=== PATIENT | female | born 1955 | race African-American/Black ===

== ENCOUNTER 2017-06-13 09:55 | Emergency (ER) | payer MEDICARE, MEDICAID ==
[~2017-06-13] VITALS: Ht 167.6 cm; Wt 75.0 kg
[~2017-06-13 09:55] MED LIST: ALAV10TA10 PO; ATEN1TAB75 PO; CYCL-36 PO; MEDR4PAK3 PO; OMEP20CA5 PO; SIMV20 PO; TAB-TAB PO; TRAM50 PO; ZITH250T PO
[2017-06-13 09:58] VITALS: BP 204/99; PULSE 86; RESP 16; TEMP 98.4; O2SAT 98
[2017-06-13 10:56] VITALS: BP 238/107; PULSE 76; RESP 18; O2SAT 100
--- NOTE | 2017-06-13 11:01 | PD ---
HPI . intermittent neck swelling x 3 days Chief Complaint: ENT Complaint Time Seen by Provider: 10:57 Travel History International Travel<30 days: No Contact w/Intl Traveler<30days: No Traveled to known affect area: No History of Present Illness HPI 61 year-old female here with complaints of intermittent neck swelling. Patient tells me that she had a CT scan of her abdomen and pelvis with and without contrast on Thursday at [place] and has since had intermittent neck swelling. She denies any chest pain, nausea, vomiting, shortness breath, difficulty swallowing or talking. At this present moment, she does not have any neck swelling. She tells me that swelling is only present early in the morning. She has no associated pain or other symptoms. She denies any fever, chills, or cold-like symptoms. PFSH Past Medical History Arthritis: Yes Autoimmune Disease: No Blood Disorders: No Anxiety: No Depression: Yes Heart Rhythm Problems: No Cancer: No Cardiovascular Problems: Yes (CHEST PAIN) High Cholesterol: Yes Chemotherapy: No Chest Pain: Yes Congestive Heart Failure: No Diabetes: No Diminished Hearing: No Endocrine: No Gastrointestinal Disorders: Yes (ULCERS) GERD: Yes Glaucoma: No Genitourinary: No Headaches: Yes Hepatitis: No Hiatal Hernia: No Hypertension: Yes Immune Disorder: No Medical other: Yes (ACID REFLUX) Neurologic: Yes Psychiatric: No Reproductive: No Respiratory: No Myocardial Infarction: No Radiation Therapy: No Sickle Cell Disease: No Thyroid Disease: No Ulcer: Yes Menopausal: Yes : 4 Para: 4 Past Surgical History AICD: No Gynecologic Surgery: Yes (TUBAL LIGATION) Insulin Pump: No Joint Replacement: No Pacemaker: No Other Surgery: Yes Social History Alcohol Use: No Tobacco Use: No Substance Use: No Allergies-Medications (Allergen,Severity, Reaction): Coded Allergies: acetaminophen (Unverified Allergy, Severe, VOMITING, 05/12/17) hydrocodone (Unverified Allergy, Severe, VOMITING, 05/12/17) nitroglycerin (Unverified Allergy, Severe, SEVERE H/A, 05/12/17) propoxyphene (Unverified Allergy, Severe, VOMITING, 05/12/17) morphine (Unverified Adverse Reaction, Severe, upset stomach, 05/12/17) Reported Meds & Prescriptions Reported Meds & Active Scripts Active Medrol Dosepak (Methylprednisolone) 4 Mg Robin 4 Mg PO DIRECTED TAKE DIRECTED Zithromax Z-Robin (Azithromycin) 250 Mg Tab 250 Mg PO DIRECTED 5 Days 500 MG (2 TABLETS) PO ON DAY 1, THEN 250 MG (1 TABLET) PO ON DAYS 2 TO 5. Reported Multivitamin (Multivitamins) 1 Tab Tab 1 Tab PO DAILY Ultram (Tramadol HCl) 50 Mg Tab 1 Tab PO BIDPRN FOR PAIN Prilosec (Omeprazole) 20 Mg Capcr 20 Mg PO DAILY Zocor (Simvastatin) 20 Mg Tab 20 Mg PO DAILY Flexeril (Cyclobenzaprine HCl) 10 Mg Tab 10 Mg PO BIDPRN Tenormin (Atenolol) 100 Mg Tab 100 Mg PO DAILY Alavert (Loratadine) 10 Mg Tab 10 Mg PO DAILY Review of Systems General / Constitutional: No: Fever Eyes: No: Visual changes HENT: No: Headaches Cardiovascular: No: Chest Pain or Discomfort Respiratory: No: Shortness of Breath Gastrointestinal: No: Abdominal Pain Genitourinary: No: Dysuria Musculoskeletal: No: Pain Skin: No Rash Neurologic: No: Weakness Psychiatric: No: Depression Endocrine: No: Polydipsia Hematologic/Lymphatic: No: Easy Bruising Physical Exam Narrative GENERAL: AAO x 3, no acute distress, Well-nourished, well-developed patient. SKIN: Warm and dry. No visible rashes or bruising. HEAD: Normocephalic and atraumatic. EYES: No scleral icterus. No injection or drainage. ENT: No nasal drainage noted. Mucous membranes pink. Airway patent. No oropharynx abnormality NECK: Supple, trachea midline. No JVD. No visible swelling. No lymphadenopathy CARDIOVASCULAR: Regular rate and rhythm without murmurs, gallops, or rubs. RESPIRATORY: Breath sounds equal bilaterally. No accessory muscle use. No rhonchi or rales. GASTROINTESTINAL: visual inspection normal EXTREMITIES: No cyanosis or edema. BACK: No obvious deformity. NEURO: CN II-12 intact, PSYCH: AAO x 3, normal affect. Data Data Last Documented VS Vital Signs Date Time Temp Pulse Resp B/P (MAP) Pulse Ox O2 Delivery O2 Flow Rate FiO2 06/13/17 11:31 62 18 184/86 (118) 99 Room Air 06/13/17 09:58 98.4 MDM Medical Decision Making Medical Screen Exam Complete: Yes Emergency Medical Condition: Yes Medical Record Reviewed: Yes Differential Diagnosis adenopathy, viral syndrome, less likely anaphylactic reaction Narrative Course 61 year-old female here with complaints of intermittent neck swelling in the morning since a CT scan this past Thursday. On examination there are no abnormalities. Her blood pressure is elevated, however she is asymptomatic. She does report white coat syndrome. I've advised follow-up with the primary care provider Dr. Ferrer. I have requested another bp check prior to discharge. Diagnosis Primary Impression: History of neck swelling Patient Instructions: General Instructions Additional Instructions: Please return to emergency department if your symptoms return or worsen. Follow up with your primary care provider. Med/Other Pt SpecificInfo: No Change to Meds Disposition: 01 DISCHARGE HOME Condition: Stable Elke Collins Jun 13, 2017 11:01
[2017-06-13 11:31] VITALS: BP 184/86; PULSE 62; RESP 18; O2SAT 99
[2017-07-08] MEDS ORDERED: LISI40TA PO (14:25)
[2017-07-08] MEDS ORDERED: RANI150T PO (14:31)
[2017-07-08] MEDS ORDERED: HYDR-3801 PO (14:31)
[2017-07-08] MEDS ORDERED: MULT-65 PO (14:46)
[2017-07-08] MEDS ORDERED: SIMV20TA PO (14:46)
[2017-07-08] MEDS ORDERED: TRAM50TA PO (14:46)
[2017-07-08] MEDS ORDERED: ALAV10TA4 PO (14:46)
[2017-07-08] MEDS ORDERED: CYCL1TAB29 PO (14:46)
[2017-07-08] MEDS ORDERED: ATEN100T PO (14:46)
== END 2017-06-13 11:42 | disposition home or self-care (01) ==
LOC: NEPD 09:55
DX: R22.1 Localized swelling, mass and lump, neck (principal); M19.90 Unspecified osteoarthritis, unspecified site; F32.9 Major depressive disorder, single episode, unspecified; E78.00 Pure hypercholesterolemia, unspecified; K21.9 Gastro-esophageal reflux disease without esophagitis; I10 Essential (primary) hypertension; Z79.899 Other long term (current) drug therapy; Z88.5 Allergy status to narcotic agent; Z88.8 Allergy status to other drugs, medicaments and biological substances
CPT/HCPCS: 99281

== ENCOUNTER → 2017-07-08 | Outpatient (CLI) | payer MEDICARE, MEDICAID ==
[~2017-07-08] MED LIST changes: +ALAV10TA4 PO; +ATEN100T PO; +CYCL1TAB29 PO; +HYDR-3801 PO; +LISI40TA PO; +MULT-65 PO; +RANI150T PO; +SIMV20TA PO; +TRAM50TA PO
[2017-07-08 15:01] LABS: AUTOMATED NEUTROPHIL # 1.9 TH/MM3 (1.8-7.7); BASOPHIL % 0.3 % (0.0-2.0); EOSINOPHIL # 0.1 TH/MM3 (0-0.4); EOSINOPHIL % 1.8 % (0.0-4.0); HEMATOCRIT 41.2 % (35.0-46.0); HEMO FLAGS DIFF FINAL; LYMPH % 50.7 % (9.0-44.0); LYMPHOCYTE # 2.4 TH/MM3 (1.0-4.8); MEAN CELL VOLUME 96.3 FL (80.0-100.0); MEAN CORPUSCULAR HEMOGLOBIN 32.1 PG (27.0-34.0); MEAN CORPUSCULAR HGB CONC 33.3 % (32.0-36.0); MONO % 7.4 % (0.0-8.0); NEUT % 39.8 % (16.0-70.0); PLATELET COUNT 220 TH/MM3 (150-450); RED BLOOD COUNT 4.28 MIL/MM3 (4.00-5.30); RED CELL DISTRIBUTION WIDTH 12.8 % (11.6-17.2); WHITE BLOOD COUNT 4.8 TH/MM3 (4.0-11.0)
[2017-07-08 15:11] LABS: INTERNATIONAL NORMALIZED RATIO 0.9 RATIO; PROTHROMBIN TIME - PATIENT 10.1 SEC (9.8-11.6)
[2017-07-08 15:13] LABS: APTT (PATIENT) 24.5 SEC (24.3-30.1)
[2017-07-08 15:56] LABS: ANION GAP 6 MEQ/L (5-15); BICARBONATE 28.8 MEQ/L (21.0-32.0); BLOOD UREA NITROGEN 18 MG/DL (7-18); CHLORIDE 107 MEQ/L (98-107); GLUCOSE,FASTING 84 MG/DL (74-99); POTASSIUM 3.9 MEQ/L (3.5-5.1); SODIUM (NA) 142 MEQ/L (136-145)
[2017-07-08 16:36] LABS: ALKALINE PHOSPHATASE 77 U/L (45-117); AST (GOT) 24 U/L (15-37)
[2017-07-08 16:37] LABS: ALT (GPT) 38 U/L (10-53); GLOMERULAR FILTRATION RATE 85 ML/MIN (>89); TOTAL BILIRUBIN ADULT 0.4 MG/DL (0.2-1.0)
--- NOTE | 2017-07-09 13:52 | EKG ---
Date Performed: 07/08/2017 Time Performed: 14:15:22 PTAGE: 61 years EKG: Sinus rhythm MODERATE INTRAVENTRICULAR CONDUCTION DELAY VOLTAGE CRITERIA FOR LVH ABNORMAL ECG Compared to PREVIOUS TRACING , the patient has developed criteria for left ventricular hypertrophy an d the criteria are progressive. Clinical correlation is advised. PREVIOUS TRACIN01/10/2009 14.10 DOCTOR: Julissa Alonzo Interpretating Date/Time 07/09/2017 13:52:31
== END ==
LOC: CPRE 13:56
PROVIDERS: ATTEND Obstetrics & Gynecology Gynecologic Oncology
DX: Z01.812 Encounter for preprocedural laboratory examination (principal); Z01.810 Encounter for preprocedural cardiovascular examination; C54.9 Malignant neoplasm of corpus uteri, unspecified
CPT/HCPCS: 36415; 80053; 85025; 85610; 85730; 93005

== ENCOUNTER 2017-07-13 09:41 | Observation (INO) | payer MEDICARE, MEDICAID ==
[~2017-07-13] VITALS: Ht 167.6 cm; Wt 79.4 kg
[~2017-07-13 09:41] MED LIST changes: -ALAV10TA10 PO; -ATEN1TAB75 PO; -CYCL-36 PO; -MEDR4PAK3 PO; -OMEP20CA5 PO; -SIMV20 PO; -TAB-TAB PO; -TRAM50 PO; -ZITH250T PO
[2017-07-13] MEDS ORDERED: METOPROLOL TARTRATE 25 MG TAB PO PRN (10:45)
[2017-07-13] MEDS ORDERED: HEPARIN SODIUM - SQ 10,000 UNITS/ML VIAL SQ SCH (10:45)
[2017-07-13] MEDS ORDERED: INSULIN HUMAN REGULAR 1,000 UNITS/10 ML VIAL SQ PRN (10:45)
[2017-07-13] MEDS ORDERED: LACTATED RINGER'S 1000 ML IV PRN (10:45)
[2017-07-13] MEDS ORDERED: ceFAZolin 2 GM PREMIX 50 ML IV SCH (10:45)
[2017-07-13] MEDS ORDERED: SODIUM CHLORID 0.9% 500 ML IV PRN (10:45)
[2017-07-13] MEDS ORDERED: CHLORHEXIDINE GLUCONATE 2 % 1 PACK (2 CLOTHS) TOPICAL PRN (10:45)
[2017-07-13] MEDS ORDERED: ROCURONIUM INJ 50 MG/5 ML SYRINGE IV PUSH ONE (12:00)
[2017-07-13] MEDS ORDERED: VECURONIUM BROMIDE 20 MG VIAL IV ONE (12:00)
[2017-07-13] MEDS ORDERED: KETOROLAC TROMETHAMINE 30 MG/ML (IVP) VIAL IV PUSH ONE (12:00)
[2017-07-13] MEDS ORDERED: ceFAZolin INJ 1,000 MG VIAL IV ONE ×2 (12:00→16:29)
[2017-07-13] MEDS ORDERED: PROPOFOL 200 MG/20 ML AMP IV ONE (12:00)
[2017-07-13] MEDS ORDERED: hydrALAZINE HCL 20 MG/ML VIAL IV ONE (12:00)
[2017-07-13] MEDS ORDERED: NEOSTIGMINE 3 MG/3 ML SYR IV ONE (12:00)
[2017-07-13] MEDS ORDERED: GLYCOPYRROLATE 1 MG/5 ML SYRINGE IV PUSH ONE (12:00)
[2017-07-13] MEDS ORDERED: NORMOSOL R INJ 1,000 ML IV ONE (12:00)
[2017-07-13] MEDS ORDERED: STERILE WATER FOR INJECTION 20 ML VIAL IV ONE (12:00)
[2017-07-13] MEDS ORDERED: PHENYLEPH/NS 1000 MCG/10 ML SYR IV ONE (12:00)
[2017-07-13] MEDS ORDERED: DEXAMETHASONE SOD PHOS 4 MG/ML VIAL IV ONE (12:00)
[2017-07-13] MEDS ORDERED: LIDOCAINE HCL 1% PF 5 ML AMPULE OTHER ONE (12:00)
[2017-07-13] MEDS ORDERED: ONDANSETRON HCL 4 MG/2 ML VIAL IV PUSH ONE (12:00)
[2017-07-13] MEDS ORDERED: LIDOCAINE 1%/EPINEPHrine 1:100,000 SOLN 50 ML VIAL ONE (13:15)
[2017-07-13] MEDS ORDERED: HEPARIN SODIUM - IV 10,000 UNITS/10 ML VIAL ONE (13:52)
[2017-07-13] MEDS ORDERED: ACETAMINOPHEN 1000 MG/100 ML 100 ML IV ONE (15:46)
[2017-07-13 16:30] VITALS: BP 140/63; PULSE 79; RESP 20; O2SAT 99
[2017-07-13] MEDS ORDERED: ONDANSETRON HCL 4 MG/2 ML VIAL IVP PRN (16:30)
[2017-07-13] MEDS ORDERED: LORazepam 0.5 MG TAB PO PRN (16:30)
[2017-07-13] MEDS ORDERED: traMADol HCL 50 MG TAB PO PRN (16:30)
[2017-07-13] MEDS ORDERED: CYCLOBENZAPRINE HCL 10 MG TAB PO PRN (16:30)
[2017-07-13] MEDS ORDERED: SODIUM CHLORIDE 0.9% FLUSH 10 ML FLUSH IV FLUSH PRN (16:30)
[2017-07-13] MEDS ORDERED: DO NOT ADM ANY ANTICOAGULANT DRUGS PRN (16:33)
[2017-07-13] MEDS: D5-1/2 NS + KCL 20 MEQ INJ 1,000 ML IV SCH (17:00)
[2017-07-13] MEDS ORDERED: *MEPERIDINE 25 MG INJ VIAL PERIprocedural Use ONLY ONE (17:03)
[2017-07-13] MEDS: KETOROLAC TROMETHAMINE 30 MG/ML (IVP) VIAL IVP SCH ×2 (17:30→22:16)
[2017-07-13] MEDS: SODIUM CHLORIDE 0.9% FLUSH 10 ML FLUSH IV FLUSH SCH (19:32)
[2017-07-13 22:12] VITALS: BP 146/56; PULSE 76; RESP 18; TEMP 98.4; O2SAT 99
[2017-07-13] MEDS: diphenhydrAMINE HCL 25 MG CAP PO PRN (22:16)
[2017-07-14] MEDS: D5-1/2 NS + KCL 20 MEQ INJ 1,000 ML IV SCH (02:26)
[2017-07-14 02:29] VITALS: BP 142/67; PULSE 78; RESP 16; TEMP 98; O2SAT 98
[2017-07-14 04:36] VITALS: O2SAT 96
[2017-07-14] MEDS: KETOROLAC TROMETHAMINE 30 MG/ML (IVP) VIAL IVP SCH (05:00)
[2017-07-14 05:41] VITALS: BP 140/68; PULSE 77; RESP 16; TEMP 98.3; O2SAT 100
[2017-07-14 07:02] LABS: AUTOMATED NEUTROPHIL # 6.5 TH/MM3 (1.8-7.7); EOSINOPHIL % 0.1 % (0.0-4.0); HEMATOCRIT 35.9 % (35.0-46.0); HEMO FLAGS DIFF FINAL; LYMPH % 14.3 % (9.0-44.0); LYMPHOCYTE # 1.1 TH/MM3 (1.0-4.8); MEAN CELL VOLUME 96.9 FL (80.0-100.0); MEAN CORPUSCULAR HEMOGLOBIN 32.8 PG (27.0-34.0); MEAN CORPUSCULAR HGB CONC 33.8 % (32.0-36.0); MONO % 4.3 % (0.0-8.0); NEUT % 81.3 % (16.0-70.0); PLATELET COUNT 195 TH/MM3 (150-450); RED BLOOD COUNT 3.71 MIL/MM3 (4.00-5.30); RED CELL DISTRIBUTION WIDTH 12.7 % (11.6-17.2)
[2017-07-14] MEDS ORDERED: TRAM50TA PO (07:26)
[2017-07-14 07:30] LABS: BICARBONATE 24.8 MEQ/L (21.0-32.0); POTASSIUM 3.5 MEQ/L (3.5-5.1)
[2017-07-14 09:00] VITALS: BP 151/69; PULSE 85; RESP 18; TEMP 98; O2SAT 100
[2017-07-14] MEDS: SODIUM CHLORIDE 0.9% FLUSH 10 ML FLUSH IV FLUSH SCH (09:00)
[2017-07-14] MEDS ORDERED: PRAVASTATIN SOD 40 MG TAB PO SCH (09:00)
[2017-07-14] MEDS ORDERED: FAMOTIDINE 20 MG TAB PO SCH (09:00)
[2017-07-14] MEDS ORDERED: LORATADINE 10 MG TAB PO SCH (09:00)
[2017-07-14] MEDS ORDERED: LISINOPRIL 20 MG TAB PO SCH (09:00)
[2017-07-14] MEDS ORDERED: ATENOLOL 100 MG TAB PO SCH (09:00)
[2017-07-14] MEDS ORDERED: hydrALAZINE HCL 100 MG TAB PO SCH (09:00)
[2017-07-14] MEDS: diphenhydrAMINE HCL 25 MG CAP PO PRN (09:32)
--- NOTE | 2017-07-14 09:56 | MP ---
cc: YULY ERICKSON OLUBUKUNOLA C. MD MOLPUS,SANDEEP Braxton MD DATE OF SURGERY 07/13/2017 PREOPERATIVE DIAGNOSIS History of stage IB endometrial cancer diagnosed approximately eight years ago treated with surgery and surgical staging. No evidence of disease on surveillance follow-up. Recently, she presented with complaints of abdominal pain. Imaging was obtained which did not show any anatomical abnormality to explain her abdominal pain and antireflux medication helped control her symptoms, however in this imaging, right pelvic lymph node was noticed and PET scan showed this to be PET avid. Intervention radiology was consulted, but felt that they cannot say safely reach this for biopsy. She was counseled regarding options and presents for surgical evaluation and management. She is seen again in the preop holding area where these findings are reviewed. Questions were answered. She expresses good understanding and wishes to proceed with surgery. PROCEDURE Robotic-assisted laparoscopic resection of right pelvic lymph nodes, resection of multifocal intraperitoneal nodules, lysis of adhesions. SURGEON Sandeep Willingham MD BOOK SALESMAN [place] presser first ANESTHESIA General endotracheal anesthesia. ESTIMATED BLOOD LOSS 50 cc IV FLUIDS 1600 cc URINE OUTPUT 300 cc HISTORY As just dictated. FINDINGS I reviewed the images with Dr. Andres England in radiology to further clarify the location of the abnormal area and at the time of surgery, clearly there was an abnormality anatomically in the area as described and found on imaging that was both approximately 1 cm lymph node immediately adjacent to the medial aspect of the external iliac vein with overlying nodularity in the peritoneum. Additionally, there were some peritoneal nodules in the pelvis bilaterally and on the anterior abdominal wall some of which had the appearance of fibrosis from prior surgery. Others, especially the one in the right pelvic side, was suspicious for the possibility of recurrent disease, although inflammatory tissue and scar tissue remained possible. PROCEDURE She is taken to the operating room, placed in the dorsal lithotomy position. After general endotracheal anesthesia was administered, a time-out was undertaken. She was identified by sight recognition and hospital ID bracelet and the proposed procedure was reviewed and confirmed. She was carefully positioned in padded Hugh stirrups. Her arms were padded and secured to her sides. She was further secured to the operating table with egg crate padding and tape in a cross chest over the shoulder fashion. All sites noted to be properly aligned with no malalignments or pressure points. She was prepped in a sterile fashion and draped and a Espinosa catheter placed in the bladder, confirmed that an orogastric tube was in the stomach on suction. With manual elevation of the abdominal wall and direct laparoscopic visualization, a 5 mm cannula was placed in the left upper quadrants and an atraumatic entry was confirmed. Carbon dioxide gas was insufflated. Incisions were then made using the previous laparoscopic incisions in the midabdomen right upper quadrant, left lateral quadrant through which a 12 mm cannula and 8 mm cannulas were placed respectively and the original 5-mm cannula exchanged for an 8-mm cannula. She was placed in Trendelenburg position. Peritoneal washings were obtained for cytology. The anatomy was surveyed with findings as described above. Some adhesions were taken down with sharp dissection. Three Ray-Elmer sponges were placed around the root of the small bowel mesentery. The robotic system brought into the operative field, attached in the usual fashion. Monopolar scissors, fenestrated bipolar forceps and Prograsp manipulators were placed in arms #1, 2 and 3 respectively and I took my place at the surgeon's console. Adhesions were taken down with sharp dissection to mobilize the colon and free adhesions from the posterior cul-de-sac. Some of these adhesions were included in the biopsies. There were some nodular implants on the peritoneum and the right and left pelvis in the region of previous sidewall dissection. These were excised sharply and were placed on a Ray-Elmer in the right lower quadrant for later retrieval. Additionally, there was approximately a 1 cm implant on the anterior abdominal wall in the lower abdomen, pelvic region. This was excised and included in the biopsy specimen. Attention was now directed toward the abnormal findings detected on CT scan. Retroperitoneal dissection was initiated and focal sharp dissection and point cautery were used to help isolate the peritoneal nodules and remove the peritoneal nodules that were overlying the lymph node. Further dissection allowed identification of the superior vesical artery and the external iliac vein. The lymph node was densely adherent to the medial wall of the external iliac vein and sharp dissection was used to excise the lymph node from the wall of the external iliac vein until essentially all gross abnormality had been sharply removed and had been placed in the right pelvis for later retrieval. The pelvis was irrigated. Small bleeders rendered hemostatic with bipolar cautery and Migue hemostatic agent was placed in the biopsy sites. All sites were hemostatic. I was felt that all reasonable surgical objectives had been completed so the robotic instruments were removed. The robotic system was disengaged from the operative field and I reentered the bedside under a sterile condition. An EndoCatch bag was used to capture collectively the peritoneal biopsies and lymph node tissue. They were all sent together labeled as such for permanent histopathologic analysis. Frozen section was not obtained out of concern that that might take all of the available tissue such that further study would not be available on permanent histopathologic analysis. Next, each of the three Ray-Elmer sponges were removed from the peritoneal cavity. They were inspected noted to be removed in their entirety. There are no remaining foreign objects in the peritoneal cavity. All sites were hemostatic. Preliminary counts were correct. The fascial defect was closed with 0 Vicryl suture using a needle pass apparatus. These fascial incisions were tied securely and rendered the fascia completely airtight and hemostatic. The remaining cannulas were withdrawn. Carbon dioxide gas was removed from the peritoneal cavity. 3-0 Vicryl subcutaneous, 3-0 Vicryl subcuticular and Steri-Strips were used to close these incisions. The pelvic exam confirmed there were no remaining foreign objects in the vagina. Final counts were correct. She was returned to dorsal supine position and was pending reversal of anesthesia when I left the operating room to precede her to the Post Anesthesia Care Unit. MD GRANT Latham/ONESIMO /7:32 AM /9:36 AM
--- NOTE | 2017-07-14 21:37 | MD ---
cc: YULY ERICKSON KELLY L. MD THOMAS, OLUBUKUNOLA C. MD ADMISSION DATE: 07/13/2017 DISCHARGE DATE: 07/14/2017 PROCEDURE 07/13/2017 robotic-assisted laparoscopic resection of right pelvic lymph nodes, resection of intraperitoneal nodules, lysis of adhesions. DIAGNOSIS History of endometrial cancer. HOSPITAL COURSE Did well in early postoperative period. Hemodynamically stable, tolerating oral intake. Espinosa catheter removed pending voiding. OBJECTIVE Ins and outs 37.1 over 1500. LABORATORY DATA Hemoglobin and hematocrit 12.1/35.9. Electrolytes pending at the time of this dictation. PHYSICAL EXAMINATION GENERAL: Alert, oriented x3 in no acute distress. LUNGS: Clear to auscultation. CARDIOVASCULAR: Regular rate and rhythm. Incisions clean and dry. ASSESSMENT Postop day #1 doing well in early postop. FINDINGS AT SURGERY Discussed as well as steps taken. Pathology is pending. Questions were asked and answered. PLAN Anticipate she will be ready for discharge to home. She is to resume prior medications. She says that she can take and tolerate tramadol for pain and this prescription will be provided. She is to contact our office to schedule follow up in approximately 1-2 weeks. We will have final pathology for discussion at that time. Activities and restrictions reviewed. Questions were answered. She expressed good understanding. . MD GRANT Latham/ /7:28 AM /9:29 PM
== END 2017-07-14 14:27 | disposition home or self-care (01) ==
LOC: HSDC 09:41 → HSDI 17:09 → HCIS 18:16
PROVIDERS: ADMIT Obstetrics & Gynecology Gynecologic Oncology; ATTEND Obstetrics & Gynecology Gynecologic Oncology
DX: C77.5 Secondary and unspecified malignant neoplasm of intrapelvic lymph nodes (principal); N73.6 Female pelvic peritoneal adhesions (postinfective); Z85.42 Personal history of malignant neoplasm of other parts of uterus; C54.1 Malignant neoplasm of endometrium; K66.8 Other specified disorders of peritoneum
CPT/HCPCS: 00840; 38570; 80048; 85025; 86850; 86900; 86901; 88112; 88305; 88307; 88341; 88342; G0378; J0131; J0360; J0690; J1100; J1644; J1885; J2175; J2370; J2405; J2710; J3010; J3480; J7120

== ENCOUNTER 2017-08-31 05:54 | Day surgery (SDC) | payer MEDICARE, MEDICAID ==
[~2017-08-31] VITALS: Ht 167.6 cm; Wt 84.6 kg
[~2017-08-31 05:54] MED LIST changes: +CYCL10TA PO; -CYCL1TAB29 PO
[2017-08-31 06:45] VITALS: BP 207/98; PULSE 78; RESP 20; TEMP 98.3; O2SAT 97
[2017-08-31] MEDS ORDERED: LISI40TA PO (06:52)
[2017-08-31] MEDS ORDERED: SODIUM CHLORIDE 0.9% 1000 ML IV SCH (07:00)
[2017-08-31] MEDS ORDERED: VANCOMYCIN 1000 MG/NS 250 ML - implanted port/tunneled catheter IV SCH ×2 (07:00)
[2017-08-31] MEDS ORDERED: CHLORHEXIDINE GLUCONATE 2 % 1 PACK (2 CLOTHS) TOPICAL SCH (07:00)
[2017-08-31] MEDS: ceFAZolin 2 GM PREMIX 50 ML - implanted port/tunneled catheter insertion IV SCH ×2 (07:15→08:56)
[2017-08-31] MEDS ORDERED: MIDAZOLAM HCL 2 MG/2 ML VIAL ONE (07:50)
[2017-08-31] MEDS ORDERED: LIDOCAINE 1%/EPINEPHrine 1:100,000 SOLN 20 ML VIAL ONE (08:01)
[2017-08-31] MEDS ORDERED: SODIUM CHLORIDE 0.9% FLUSH 10 ML FLUSH IVF PRN (08:45)
--- NOTE | 2017-08-31 08:46 | PD.RAD ---
Post Procedure Progress Note Pre Procedure Diagnosis: (1) Endometrial ca Post Procedure Diagnosis: (1) Endometrial ca Procedure Date: Aug 31, 2017 Supervising Radiologist: Jacoby Hodges Proceduralist/Assist: RT Narinder(R), RT Genesis(R) Anesthesia: Conscious Sedation Plan of Activity Patient to Unit: ROPU Patient Condition: Good See PACS Report for procedural detail/treatment Jacoby Hodges MD Aug 31, 2017 08:46
[2017-08-31 08:50] VITALS: BP 148/73; PULSE 73; RESP 20; TEMP 97.4; O2SAT 93
[2017-08-31 09:05] VITALS: BP 156/62; PULSE 69; RESP 20; O2SAT 95
--- NOTE | 2017-08-31 09:10 | RADRPT ---
EXAM DATE/TIME: 08/31/2017 09:12 [facility] COMPARISON: No previous studies available for comparison. INDICATIONS : Patient presents with recurrent endometrial cancer in need of port placement. MEDICAL HISTORY : Arthritis Endometrial Adenocarcinoma Fibromyalgia High Cholesterol Hypertension Migraines GERD SURGICAL HISTORY : Hysterectomy 2008 ENCOUNTER: Initial ACUITY: 3 weeks PAIN SCORE: 0/10 FLUORO TIME: 0.5 minutes IMAGE SERIES: 1 SEDATION TIME: 30 minutes ACCESS: Right internal jugular vein SEDATION: 1.) 3 mg midazolam (Versed) IV 2.) 150 mcg fentanyl (Sublimaze) IV Prophylactic antibiotics were administered with appropriate pre-procedure timing. Vancomycin within 2 hours of procedure, Ancef (or alternative) within 1 hour of procedure. DEVICE: 1. 8 [place] single lumen Dual Power Port PROCEDURE : 1. Continuous pulse oximetry and EKG monitoring. 2. Intravenous conscious sedation. 3. Ultrasound guidance for venous access. 4. Fluoroscopic guided implantable central venous port placement. The patient was placed supine. The neck was prepped in sterile fashion. Full sterile technique was u sed, including cap, mask, sterile gloves and gown, and a large sterile sheet. Hand hygiene and 2% ch lorhexidine Betadine was utilized per protocol for cutaneous antisepsis with appropriate dry time for site. Sterile gel and sterile probe cover were utilized for ultrasound guidance. The skin and sub cutaneous tissues were infiltrated with local anesthetic solution. Under direct ultrasound guidance, central venous access was accomplished in the targeted vessel. The ultrasound images depicting access guidance were stored and saved to PACS for permanent record. A s ubcutaneous pocket was created using blunt dissection. The port was introduced to the pocket. The c atheter tubing was fed through a subcutaneous tunnel to the venotomy site. The catheter tubing was c ut to a suitable length and then was introduced through a valved Peel-Away sheath and positioned with catheter tubing tip at the cavo-atrial junction level. The pocket incision was closed with subcutic ular Vicryl suture. Steri-Strips were applied. The port was flushed and locked with heparin solutio n per protocol. Sterile dressing was applied to the site. The patient tolerated the procedure well. Conscious sedation was performed with the prescribed dosages and duration as above in the presence of an independent trained radiology nurse to assist in the monitoring of the patient. EKG and oximetry remained stable throughout the procedure. The patient tolerated the procedure well and there were no complications. The patient was sent to post anesthesia recovery in stable condition. CONCLUSION: Uncomplicated ultrasound and fluoroscopic guided implanted central venous port catheter placement as described in detail above. An 8 [place] Power port was placed. Jacoby Hodges MD on August 31, 2017 at 8:56 Board Certified Radiologist. This report was verified electronically.
[2017-08-31 09:35] VITALS: BP 139/76; PULSE 68; RESP 20; O2SAT 94
[2017-08-31 10:05] VITALS: BP 145/70; PULSE 68; RESP 20; O2SAT 97
[2017-08-31 10:35] VITALS: BP 145/70; PULSE 68; RESP 20; O2SAT 97
== END 2017-08-31 10:55 | disposition home or self-care (01) ==
LOC: HROP 05:54 → HRIP 06:48 → HROP 10:55
PROVIDERS: ATTEND Obstetrics & Gynecology Gynecologic Oncology
DX: C54.1 Malignant neoplasm of endometrium (principal); I10 Essential (primary) hypertension; R07.89 Other chest pain; K21.9 Gastro-esophageal reflux disease without esophagitis; E78.00 Pure hypercholesterolemia, unspecified; M79.7 Fibromyalgia
CPT/HCPCS: 36561; 76937; 77001; 99152; 99153; C1788; J0690; J1642; J2250; J3010; J3370; J7030; J7050